=== PATIENT | male | born 1960 | race Caucasian/White ===

== ENCOUNTER 2016-10-26 12:38 | Inpatient (IN) | payer MEDICARE, OTHER ==
[~2016-10-26] VITALS: Ht 160 cm; Wt 61.0 kg
[~2016-10-26 12:38] MED LIST: ACYC400T PO; DARU75TA PO; LAMI1TAB PO; RALT400T PO; RITO100C2 PO
[2016-10-26 13:13] LABS: KETONES,URINE Trace (NEGATIVE); LEUKOCYTE ESTERASE ,URINE Negative (NEGATIVE); PH,URINE 5.5 (5.0-8.0)
[2016-10-26 13:14] LABS: CALCIUM, SERUM 7.7 mg/dL (8.5-10.1); POTASSIUM 3.3 mmol/L (3.5-5.1)
[2016-10-26 13:20] LABS: ADD UA MICROSCOPIC YES
[2016-10-26 13:21] LABS: ALBUMIN 2.3 g/dL (3.4-5.0); BILIRUBIN,TOTAL 6.2 mg/dL (0.2-1.0); TOTAL PROTEIN, SERUM 6.5 g/dL (6.4-8.2)
[2016-10-26 13:30] LABS: ADD URINE CULTURE NO; WBC,URINE 0-2 /HPF (0-3)
[2016-10-26 14:16] LABS: HEMATOCRIT 30 % (39-51); MEAN CORPUSCULAR HEMOGLOBIN 28 PG (26.0-33.0); MEAN CORPUSCULAR HGB CONC 34 g/dl (31.0-36.0); MEAN CORPUSCULAR VOLUME 83 fL (80-96); RED BLOOD CELL COUNT(AUTO) 3.58 MIL/uL (4.5-6.0)
[2016-10-26 14:18] LABS: PLATELET COUNT (AUTO) 20 /CMM (150-450)
[2016-10-26] MEDS ORDERED: ONDANSETRON HCL/PF 4 MG/2 ML VIAL IV ONE (14:30)
[2016-10-26] MEDS ORDERED: MORPHINE SULFATE INJ 2 MG/ML DISP.SYRIN IV ONE (14:30)
[2016-10-26] MEDS ORDERED: ONDANSETRON HCL/PF 4 MG/2 ML VIAL ONE (14:37)
[2016-10-26] MEDS ORDERED: MORPHINE SULFATE INJ 4 MG/ML DISP.SYRIN ONE (14:37)
[2016-10-26] MEDS ORDERED: OXYC15TA2 PO (15:23)
[2016-10-26] MEDS ORDERED: [UNRECOGNIZED DRUG - REMARK] (15:23)
[2016-10-26] MEDS ORDERED: FERR325T28 PO (15:52)
[2016-10-26] MEDS ORDERED: TENO300T2 PO (15:52)
[2016-10-26] MEDS ORDERED: PREG150C PO (15:52)
[2016-10-26] MEDS ORDERED: ETRA200T PO (15:52)
[2016-10-26] MEDS ORDERED: ACYC400T PO (15:52)
[2016-10-26] MEDS ORDERED: THIA100T74 PO (15:52)
[2016-10-26] MEDS ORDERED: ACET-868 PO (15:52)
[2016-10-26 16:03] LABS: BAND % (MANUAL) 28 % (0.0-5.0); LYMPHOCYTES % (MANUAL) 23 % (16-48); METAMYELOCYTES % 2 % (0-0)
[2016-10-26 16:04] LABS: ANISOCYTOSIS 1+; MICROCYTOSIS 1+; PLATELET ESTIMATE DECRE; ROULEAUX 1+
[2016-10-26] MEDS ORDERED: IV SET PRIMARY 1 EA INFUS.SET MC ONE (17:10)
[2016-10-26] MEDS ORDERED: IV NS 0.9% 1,000 ML ONE (17:10)
[2016-10-26] MEDS ORDERED: IV NS 0.9% 1,000 ML BAG IV ONE (17:30)
[2016-10-26] MEDS ORDERED: Z GUARD REMEDY 2 OZ OINT TP PRN (18:30)
[2016-10-26] MEDS ORDERED: HYDROCODONE/APAP 5/325MG 1 EACH TABLET PO PRN (18:30)
[2016-10-26] MEDS ORDERED: MAG HYDROX/AL HYDROX/SIMETH 30 ML UDC PO PRN (18:30)
[2016-10-26] MEDS ORDERED: ZOLPIDEM TARTRATE 5 MG TABLET PO PRN (18:30)
[2016-10-26] MEDS ORDERED: MAGNESIUM HYDROXIDE 30 ML UDC PO PRN (18:30)
[2016-10-26] MEDS ORDERED: ONDANSETRON HCL/PF 4 MG/2 ML VIAL IVP PRN (18:30)
[2016-10-26 19:30] VITALS: BP 101/61
[2016-10-26 20:00] VITALS: BP_SYST 101; BP_SYST 146; BP_DIAS 101; BP_DIAS 61
[2016-10-26] MEDS ORDERED: POTASSIUM CHLORIDE 20 MEQ TAB.PRT.SR PO ONE ×2 (21:00→21:14)
[2016-10-27] MEDS: ACYCLOVIR 800 MG TABLET PO SCH ×3 (09:00→17:59)
[2016-10-27] MEDS ORDERED: TENOFOVIR DISOPROXIL FUMARATE 300 MG TABLET PO SCH (09:00)
[2016-10-27] MEDS: PREGABALIN 25 MG CAPSULE PO SCH ×2 (09:22→17:59)
[2016-10-27] MEDS: PANTOPRAZOLE 40 MG TABLET.DR PO SCH (09:23)
[2016-10-27 09:30] LABS: HEMATOCRIT 28 % (39-51); HEMOGLOBIN 9.8 g/dL (13.5-17.5); MEAN CORPUSCULAR HEMOGLOBIN 28 PG (26.0-33.0); MEAN CORPUSCULAR HGB CONC 35 g/dl (31.0-36.0); MEAN CORPUSCULAR VOLUME 82 fL (80-96); RED BLOOD CELL COUNT(AUTO) 3.44 MIL/uL (4.5-6.0)
[2016-10-27 09:40] LABS: CALCIUM, SERUM 7.7 mg/dL (8.5-10.1); CREATININE 0.8 mg/dL (0.6-1.3); PHOSPHORUS 2.9 mg/dL (2.5-4.9); POTASSIUM 3.9 mmol/L (3.5-5.1)
[2016-10-27 09:42] LABS: PLATELET COUNT (AUTO) 25 /CMM (150-450)
[2016-10-27 09:44] LABS: ALBUMIN 1.9 g/dL (3.4-5.0); BILIRUBIN,DIRECT 4.6 mg/dL (0.0-0.2); BILIRUBIN,TOTAL 5.4 mg/dL (0.2-1.0); INDIRECT BILIRUBIN 0.8 mg/dL (0.0-1.1); TOTAL PROTEIN, SERUM 6.1 g/dL (6.4-8.2)
[2016-10-27 09:51] LABS: THYROID STIMULATING HORMONE 0.909 uIU/mL (0.358-3.74)
[2016-10-27 10:04] LABS: ANISOCYTOSIS 1+; BAND % (MANUAL) 9 % (0.0-5.0); BASOPHILS % (MANUAL) 1 % (0.0-2.0); EOSINOPHILS % (MANUAL) 2 % (0-4); HYPOCHROMASIA 1+; LYMPHOCYTES % (MANUAL) 29 % (16-48); METAMYELOCYTES % 1 % (0-0); PLATELET ESTIMATE DECREASED; POLYCHROMASIA 1+
[2016-10-27 13:08] LABS: C-REACTIVE PROTEIN 12.3 mg/dL (0.0-0.9)
[2016-10-27] MEDS: oxyCODONE IR immediate release 5 MG CAPSULE PO PRN (13:23)
[2016-10-27 20:00] VITALS: BP 108/73
[2016-10-27] MEDS: POLYETHYLENE GLYCOL 3350 17 GM POWD.PACK PO SCH (21:33)
[2016-10-27] MEDS: DOCUSATE SODIUM LIQ 100 MG/10 ML UDC PO SCH (21:33)
[2016-10-28] MEDS: oxyCODONE IR immediate release 5 MG CAPSULE PO PRN (06:10)
[2016-10-28 06:54] LABS: HEMATOCRIT 28 % (39-51); HEMOGLOBIN 9.8 g/dL (13.5-17.5); MEAN CORPUSCULAR HEMOGLOBIN 28 PG (26.0-33.0); MEAN CORPUSCULAR HGB CONC 34 g/dl (31.0-36.0); MEAN CORPUSCULAR VOLUME 82 fL (80-96); RED BLOOD CELL COUNT(AUTO) 3.44 MIL/uL (4.5-6.0); WHITE BLOOD COUNT (AUTO) 2.7 K/uL (4.3-11.0)
[2016-10-28 07:14] LABS: ALBUMIN 1.8 g/dL (3.4-5.0); BILIRUBIN,TOTAL 4.8 mg/dL (0.2-1.0); INDIRECT BILIRUBIN 0.8 mg/dL (0.0-1.1); TOTAL PROTEIN, SERUM 6.2 g/dL (6.4-8.2)
[2016-10-28 07:20] LABS: CALCIUM, SERUM 7.6 mg/dL (8.5-10.1); CREATININE 0.9 mg/dL (0.6-1.3); PHOSPHORUS 2.8 mg/dL (2.5-4.9); POTASSIUM 4.3 mmol/L (3.5-5.1)
[2016-10-28 07:48] LABS: PLATELET COUNT (AUTO) 37 /CMM (150-450)
[2016-10-28 08:00] VITALS: BP 95/52
[2016-10-28 08:01] LABS: BAND % (MANUAL) 13 % (0.0-5.0); LYMPHOCYTES % (MANUAL) 20 % (16-48); METAMYELOCYTES % 1 % (0-0); MYELOCYTES % 1 % (0-0); PLATELET ESTIMATE DECREASED
[2016-10-28 08:02] LABS: ANISOCYTOSIS 1+; HYPOCHROMASIA 1+
[2016-10-28] MEDS: PANTOPRAZOLE 40 MG TABLET.DR PO SCH (08:18)
[2016-10-28] MEDS: PREGABALIN 25 MG CAPSULE PO SCH ×2 (08:18→16:10)
[2016-10-28] MEDS: ACYCLOVIR 800 MG TABLET PO SCH ×2 (08:19→16:10)
[2016-10-28] MEDS: FOLIC ACID 1 MG TABLET PO SCH (09:25)
[2016-10-28 14:49] LABS: HIV-1 p24 ANTIGEN NON REACTIVE (NONREACTIVE); HIV-1/2 ANTIBODY REACTIVE (NONREACTIVE)
[2016-10-28 16:00] VITALS: BP 111/67
[2016-10-28] MEDS: FERROUS SULFATE (325 MG) 325 MG/TAB TABLET PO SCH (16:11)
[2016-10-28 18:07] LABS: *BANDS 19 % (Not Estab.); *NEUTROPHILS, ABSOLUTE 1.4 x10E3/uL (1.4-7.0)
[2016-10-28] MEDS: DOCUSATE SODIUM LIQ 100 MG/10 ML UDC PO SCH (22:00)
[2016-10-28] MEDS: POLYETHYLENE GLYCOL 3350 17 GM POWD.PACK PO SCH (22:00)
[2016-10-28 23:32] VITALS: BP 102/58
[2016-10-29] MEDS: PANTOPRAZOLE 40 MG TABLET.DR PO SCH (06:30)
[2016-10-29 07:09] LABS: *RAPID PLASMA REAGIN QUAL Non Reactive (Non Reactive)
[2016-10-29 08:00] VITALS: BP 106/65
[2016-10-29 08:24] LABS: *SPE ALBUMIN 2.1 g/dL (2.9-4.4)
[2016-10-29] MEDS: PREGABALIN 25 MG CAPSULE PO SCH ×2 (08:31→17:59)
[2016-10-29] MEDS: ACYCLOVIR 800 MG TABLET PO SCH ×2 (08:31→17:59)
[2016-10-29] MEDS: FERROUS SULFATE (325 MG) 325 MG/TAB TABLET PO SCH ×2 (08:31→17:59)
[2016-10-29] MEDS: FOLIC ACID 1 MG TABLET PO SCH (08:31)
[2016-10-29 12:11] LABS: *EBV AB VCA, IgG >600.0 U/mL (0.0-17.9); *EBV AB VCA, IgM <36.0 U/mL (0.0-35.9)
[2016-10-29] MEDS ORDERED: PIPERACILLIN /TAZOBACTAM 4.5 G in IV D5W 50 ML IV SCH (13:30)
[2016-10-29] MEDS: PIPERACILLIN /TAZOBACTAM 3.375 G in IV D5W 50 ML IV SCH ×2 (15:24→18:10)
[2016-10-29] MEDS ORDERED: IV SET PRIMARY PUMP SET 1 EA INFUS.SET MC ONE (15:24)
[2016-10-29 16:00] VITALS: BP 101/58
[2016-10-29] MEDS ORDERED: FEE PK DOSING 1 MIN EA MC ONE (19:22)
[2016-10-29] MEDS: SULFAMETH/TRIMETH 800/160 MG 1 UDTAB TABLET PO SCH (19:58)
[2016-10-29 20:00] VITALS: BP 109/72
[2016-10-29] MEDS ORDERED: SECONDARY IV SET 1 EA INFUS.SET MC ONE (21:03)
[2016-10-29] MEDS: VANCOMYCIN 0.75 GM in IV D5W 250 ML IV SCH (21:22)
[2016-10-29] MEDS: DOCUSATE SODIUM LIQ 100 MG/10 ML UDC PO SCH (22:00)
[2016-10-29] MEDS: POLYETHYLENE GLYCOL 3350 17 GM POWD.PACK PO SCH (22:00)
[2016-10-30] MEDS: VANCOMYCIN 0.75 GM in IV D5W 250 ML IV SCH ×2 (04:36→11:42)
[2016-10-30 06:04] LABS: CMV, IgM <30.0 AU/mL (0.0-29.9)
[2016-10-30 08:00] VITALS: BP 98/58
[2016-10-30] MEDS: ACYCLOVIR 800 MG TABLET PO SCH ×2 (08:17→17:41)
[2016-10-30] MEDS: FERROUS SULFATE (325 MG) 325 MG/TAB TABLET PO SCH ×2 (08:17→17:41)
[2016-10-30] MEDS: FOLIC ACID 1 MG TABLET PO SCH (08:17)
[2016-10-30] MEDS: PANTOPRAZOLE 40 MG TABLET.DR PO SCH (08:17)
[2016-10-30] MEDS: PREGABALIN 25 MG CAPSULE PO SCH ×2 (08:20→17:41)
[2016-10-30 11:11] LABS: HEMATOCRIT 28 % (39-51); HEMOGLOBIN 9.3 g/dL (13.5-17.5); MEAN CORPUSCULAR HEMOGLOBIN 27 PG (26.0-33.0); MEAN CORPUSCULAR HGB CONC 34 g/dl (31.0-36.0); MEAN CORPUSCULAR VOLUME 81 fL (80-96); RED BLOOD CELL COUNT(AUTO) 3.43 MIL/uL (4.5-6.0); WHITE BLOOD COUNT (AUTO) 2.4 K/uL (4.3-11.0)
[2016-10-30 11:23] LABS: CALCIUM, SERUM 7.4 mg/dL (8.5-10.1); POTASSIUM 4.1 mmol/L (3.5-5.1)
[2016-10-30 11:26] LABS: PLATELET COUNT (AUTO) 39 /CMM (150-450)
[2016-10-30 11:33] LABS: ALBUMIN 1.6 g/dL (3.4-5.0); BILIRUBIN,DIRECT 4.4 mg/dL (0.0-0.2); BILIRUBIN,TOTAL 5.1 mg/dL (0.2-1.0); INDIRECT BILIRUBIN 0.7 mg/dL (0.0-1.1)
[2016-10-30 12:00] LABS: INR 1.36 (0.87-1.13); PROTHROMBIN TIME 14.7 SECS (9.5-12.7)
[2016-10-30] MEDS: oxyCODONE IR immediate release 5 MG CAPSULE PO PRN (12:05)
[2016-10-30] MEDS ORDERED: LORAZEPAM 0.5 MG TABLET PO PRN (13:30)
[2016-10-30 14:46] LABS: BAND % (MANUAL) 4 % (0.0-5.0); LYMPHOCYTES % (MANUAL) 34 % (16-48); PLATELET ESTIMATE DECREASED
[2016-10-30 14:48] LABS: ANISOCYTOSIS 1+
[2016-10-30 16:00] VITALS: BP 106/56
[2016-10-30 18:00] VITALS: BP 106/56
[2016-10-30 20:00] VITALS: BP 101/61
[2016-10-30] MEDS: POLYETHYLENE GLYCOL 3350 17 GM POWD.PACK PO SCH (21:27)
[2016-10-30] MEDS: DOCUSATE SODIUM LIQ 100 MG/10 ML UDC PO SCH (21:27)
[2016-10-30 22:00] VITALS: BP 101/61
[2016-10-31 08:00] VITALS: BP 109/71
[2016-10-31] MEDS: ACYCLOVIR 800 MG TABLET PO SCH ×2 (08:49→16:17)
[2016-10-31] MEDS: FOLIC ACID 1 MG TABLET PO SCH (08:49)
[2016-10-31] MEDS: FERROUS SULFATE (325 MG) 325 MG/TAB TABLET PO SCH ×2 (08:49→16:17)
[2016-10-31] MEDS: PREGABALIN 25 MG CAPSULE PO SCH ×2 (08:49→16:17)
[2016-10-31] MEDS: PANTOPRAZOLE 40 MG TABLET.DR PO SCH (08:49)
[2016-10-31] MEDS: oxyCODONE IR immediate release 5 MG CAPSULE PO PRN (08:52)
[2016-10-31 12:10] LABS: HEMATOCRIT 29 % (39-51); HEMOGLOBIN 9.7 g/dL (13.5-17.5); MEAN CORPUSCULAR HEMOGLOBIN 28 PG (26.0-33.0); MEAN CORPUSCULAR HGB CONC 34 g/dl (31.0-36.0); MEAN CORPUSCULAR VOLUME 82 fL (80-96); RED BLOOD CELL COUNT(AUTO) 3.53 MIL/uL (4.5-6.0); WHITE BLOOD COUNT (AUTO) 2.9 K/uL (4.3-11.0)
[2016-10-31 12:13] LABS: CALCIUM, SERUM 7.3 mg/dL (8.5-10.1); CREATININE 0.9 mg/dL (0.6-1.3); PLATELET COUNT (AUTO) 50 /CMM (150-450); POTASSIUM 4.5 mmol/L (3.5-5.1)
[2016-10-31 13:27] LABS: ANISOCYTOSIS 1+; BAND % (MANUAL) 5 % (0.0-5.0); HYPOCHROMASIA 1+; LYMPHOCYTES % (MANUAL) 41 % (16-48); PLATELET ESTIMATE DECREASED
[2016-10-31 17:05] VITALS: BP 118/70
[2016-10-31 17:08] VITALS: BP 148/77
[2016-10-31] MEDS: SULFAMETH/TRIMETH 800/160 MG 1 UDTAB TABLET PO SCH (18:53)
[2016-10-31 20:00] VITALS: BP 117/71
[2016-10-31] MEDS: DOCUSATE SODIUM LIQ 100 MG/10 ML UDC PO SCH (21:42)
[2016-10-31] MEDS: POLYETHYLENE GLYCOL 3350 17 GM POWD.PACK PO SCH (21:42)
[2016-10-31 22:00] VITALS: BP 117/71
[2016-10-31 23:09] LABS: *HCV QUANT HCV Not Detected IU/mL (.)
[2016-11-01 08:00] VITALS: BP 113/71
[2016-11-01] MEDS: FERROUS SULFATE (325 MG) 325 MG/TAB TABLET PO SCH (08:32)
[2016-11-01] MEDS: FOLIC ACID 1 MG TABLET PO SCH (08:32)
[2016-11-01] MEDS: PANTOPRAZOLE 40 MG TABLET.DR PO SCH (08:32)
[2016-11-01] MEDS: ACYCLOVIR 800 MG TABLET PO SCH (08:32)
[2016-11-01] MEDS: PREGABALIN 25 MG CAPSULE PO SCH (08:32)
[2016-11-01 09:35] LABS: HEMATOCRIT 27 % (39-51); HEMOGLOBIN 9.1 g/dL (13.5-17.5); MEAN CORPUSCULAR HEMOGLOBIN 28 PG (26.0-33.0); MEAN CORPUSCULAR HGB CONC 34 g/dl (31.0-36.0); MEAN CORPUSCULAR VOLUME 82 fL (80-96); PLATELET COUNT (AUTO) 51 /CMM (150-450); RED BLOOD CELL COUNT(AUTO) 3.28 MIL/uL (4.5-6.0); WHITE BLOOD COUNT (AUTO) 3.1 K/uL (4.3-11.0)
[2016-11-01 10:05] LABS: CALCIUM, SERUM 7.3 mg/dL (8.5-10.1); CREATININE 1.1 mg/dL (0.6-1.3); POTASSIUM 4.1 mmol/L (3.5-5.1)
[2016-11-01 10:08] LABS: BAND % (MANUAL) 1 % (0.0-5.0); LYMPHOCYTES % (MANUAL) 39 % (16-48)
[2016-11-01 10:10] LABS: ANISOCYTOSIS 3+; HYPOCHROMASIA 2+
== END 2016-11-01 15:00 | disposition home or self-care (01) | DRG 808 ==
LOC: ER 12:40 → MED 14:35
PROVIDERS: ADMIT Internal Medicine; ATTEND Internal Medicine
DX: D61.811 Other drug-induced pancytopenia (principal); E43 Unspecified severe protein-calorie malnutrition; N17.0 Acute kidney failure with tubular necrosis; E87.1 Hypo-osmolality and hyponatremia; D68.9 Coagulation defect, unspecified; B19.20 Unspecified viral hepatitis C without hepatic coma; K59.00 Constipation, unspecified; R31.9 Hematuria, unspecified; Z91.14 Patient's other noncompliance with medication regimen; Z91.19 Patient's noncompliance with other medical treatment and regimen; D63.8 Anemia in other chronic diseases classified elsewhere; T40.2X5A Adverse effect of other opioids, initial encounter; Y92.009 Unspecified place in unspecified non-institutional (private) residence as the place of occurrence of the external cause; F31.9 Bipolar disorder, unspecified; G89.29 Other chronic pain; K62.89 Other specified diseases of anus and rectum; E87.6 Hypokalemia; E53.8 Deficiency of other specified B group vitamins; F15.90 Other stimulant use, unspecified, uncomplicated; F41.9 Anxiety disorder, unspecified; K80.20 Calculus of gallbladder without cholecystitis without obstruction
CPT/HCPCS: 36415; 76705-TC; 80048-TC; 80053-TC; 80074; 80076-TC; 81000-TC; 82105; 82728-TC; 82746; 83540-TC; 83615-TC; 83735-TC; 84100-TC; 84155; 84165; 84439-TC; 84443-TC; 85025-TC; 85045-TC; 85610-TC; 85730-TC; 86140-TC; 86360; 86431-TC; 86592; 86644; 86645; 86663; 86664; 86665; 86777; 86778; 87040-TC; 87081-TC; A4606; J2270; J2405; J2543; J3370; J7030; J7060; Z7610

== ENCOUNTER 2016-11-06 19:55 | Inpatient (IN) | payer MEDICARE, OTHER ==
[~2016-11-06] VITALS: Ht 160 cm; Wt 66.2 kg
[~2016-11-06 19:55] MED LIST changes: +ACET-868 PO; -DARU75TA PO; +ETRA200T PO; +FERR325T28 PO; -LAMI1TAB PO; +OXYC15TA2 PO; +PREG150C PO; -RALT400T PO; -RITO100C2 PO; +TENO300T2 PO; +THIA100T74 PO
[2016-11-06] MEDS ORDERED: IV NS 0.9% 1,000 ML BAG IV ONE (21:30)
[2016-11-06] MEDS ORDERED: ONDANSETRON HCL/PF 4 MG/2 ML VIAL IVP ONE (21:30)
[2016-11-06 21:34] LABS: KETONES,URINE Negative (NEGATIVE); LEUKOCYTE ESTERASE ,URINE Negative (NEGATIVE)
[2016-11-06] MEDS ORDERED: ONDANSETRON HCL/PF 4 MG/2 ML VIAL ONE (21:42)
[2016-11-06] MEDS ORDERED: IV SET PRIMARY 1 EA INFUS.SET MC ONE (21:42)
[2016-11-06] MEDS ORDERED: IV NS 0.9% 1,000 ML ONE (21:42)
[2016-11-06 21:47] LABS: ADD UA MICROSCOPIC YES
[2016-11-06 21:48] LABS: ADD URINE CULTURE NO; RBC,URINE 21-50 /HPF (0-2); WBC,URINE 0-2 /HPF (0-3)
[2016-11-06 21:50] LABS: CALCIUM, SERUM 7.5 mg/dL (8.5-10.1); POTASSIUM 3.6 mmol/L (3.5-5.1)
[2016-11-06 21:55] LABS: INR 1.25 (0.87-1.13); PROTHROMBIN TIME 13.1 SECS (9.5-12.7)
[2016-11-06 21:56] LABS: ALBUMIN 1.8 g/dL (3.4-5.0); BASOPHILS % (AUTO) 0.3 % (0.0-2.0); BILIRUBIN,DIRECT 3.3 mg/dL (0.0-0.2); BILIRUBIN,TOTAL 3.8 mg/dL (0.2-1.0); DIFF TOTAL % 100 %; EOSINOPHILS % (AUTO) 0.2 % (0.0-6.0); HEMATOCRIT 25 % (39-51); HEMOGLOBIN 8.4 g/dL (13.5-17.5); LYMPHOCYTES # (AUTO) 0.6 /CMM (0.8-4.8); LYMPHOCYTES % (AUTO) 20.3 % (20.0-44.0); MEAN CORPUSCULAR HEMOGLOBIN 28 PG (26.0-33.0); MEAN CORPUSCULAR HGB CONC 34 g/dl (31.0-36.0); MEAN CORPUSCULAR VOLUME 82 fL (80-96); MONOCYTES # (AUTO) 0.3 /CMM (0.1-1.30); MONOCYTES % (AUTO) 11.2 % (2.0-12.0); NEUTROPHILS # (AUTO) 2.1 /CMM (1.8-8.9); PLATELET COUNT (AUTO) 96 /CMM (150-450); RED BLOOD CELL COUNT(AUTO) 3.05 MIL/uL (4.5-6.0); WHITE BLOOD COUNT (AUTO) 3.1 K/uL (4.3-11.0)
[2016-11-06 21:59] LABS: INDIRECT BILIRUBIN 0.5 mg/dL (0.0-1.1)
[2016-11-06 22:18] LABS: BAND % (MANUAL) 7 % (0.0-5.0); LYMPHOCYTES % (MANUAL) 29 % (16-48)
[2016-11-06 22:19] LABS: ANISOCYTOSIS 1+; PLATELET ESTIMATE DECREASED
[2016-11-06 23:30] VITALS: BP 102/58
[2016-11-06] MEDS ORDERED: ACETAMINOPHEN 325 MG TABLET PO PRN ×2 (23:30→23:45)
[2016-11-06] MEDS ORDERED: ONDANSETRON HCL/PF 4 MG/2 ML VIAL IVP PRN ×2 (23:30→23:45)
[2016-11-06] MEDS ORDERED: VANCOMYCIN 1 GM in IV D5W 250 ML IV ONE (23:30)
[2016-11-06] MEDS ORDERED: ZOLPIDEM TARTRATE 5 MG TABLET PO PRN ×2 (23:30→23:45)
[2016-11-06] MEDS ORDERED: MAGNESIUM HYDROXIDE 30 ML UDC PO PRN ×2 (23:30→23:45)
[2016-11-06] MEDS ORDERED: PIPERACILLIN /TAZOBACTAM 3.375 G in IV D5W 50 ML IV ONE (23:30)
[2016-11-06] MEDS ORDERED: MAG HYDROX/AL HYDROX/SIMETH 30 ML UDC PO PRN ×2 (23:30→23:45)
[2016-11-07] VITALS: BP 102/58
[2016-11-07] MEDS ORDERED: VANCOMYCIN 1 GM in IV D5W 250 ML IV ONE ×2
[2016-11-07] MEDS ORDERED: VANCOMYCIN 1 GM VIAL ONE (00:06)
[2016-11-07] MEDS ORDERED: PIPERACILLIN /TAZOBACTAM 3.375 G VIAL IV ONE ×2 (00:07→04:51)
[2016-11-07] MEDS ORDERED: HYDROCODONE/APAP 5/325MG 1 EACH TABLET ONE (00:07)
[2016-11-07] MEDS ORDERED: IV SET PRIMARY PUMP SET 1 EA INFUS.SET MC ONE (00:09)
[2016-11-07] MEDS ORDERED: SECONDARY IV SET 1 EA INFUS.SET MC ONE (00:10)
[2016-11-07] MEDS ORDERED: IV D5W 250 ML IV ONE ×2 (00:10→00:11)
[2016-11-07] MEDS ORDERED: IV NS 0.9% 250 ML IV ONE (00:10)
[2016-11-07] MEDS ORDERED: IV D5W 50 ML IV ONE ×2 (00:10→04:52)
[2016-11-07] MEDS: PIPERACILLIN /TAZOBACTAM 3.375 G in IV D5W 50 ML IV SCH ×5 (00:25→23:36)
[2016-11-07] MEDS ORDERED: HYDROCODONE/APAP 5/325MG 1 EACH TABLET PO PRN (00:30)
[2016-11-07] MEDS ORDERED: MAG HYDROX/AL HYDROX/SIMETH 30 ML UDC ONE (05:48)
[2016-11-07] MEDS ORDERED: IV NS 0.9% 1,000 ML BAG IV SCH (06:30)
[2016-11-07] MEDS ORDERED: IV NS 0.9% 1,000 ML ONE (06:52)
[2016-11-07] MEDS: IV NS 0.9% 1,000 ML IV PRN (06:55)
[2016-11-07] MEDS ORDERED: PANTOPRAZOLE 40 MG TABLET.DR PO SCH (07:30)
[2016-11-07 08:00] VITALS: BP 103/61
[2016-11-07] MEDS ORDERED: FEE PK DOSING 1 MIN EA MC ONE (08:29)
[2016-11-07] MEDS: PANTOPRAZOLE 40 MG TABLET.DR PO SCH (08:57)
[2016-11-07] MEDS: FERROUS SULFATE (325 MG) 325 MG/TAB TABLET PO SCH ×3 (08:57→17:23)
[2016-11-07] MEDS: PREGABALIN 25 MG CAPSULE PO SCH ×2 (08:57→17:24)
[2016-11-07] MEDS: TENOFOVIR DISOPROXIL FUMARATE 300 MG TABLET PO SCH (08:58)
[2016-11-07] MEDS: THIAMINE HCL 100 MG TABLET PO SCH (08:58)
[2016-11-07] MEDS: VANCOMYCIN 1 GM in IV D5W 250 ML IV SCH ×2 (08:58→17:25)
[2016-11-07 11:28] LABS: CALCIUM, SERUM 7.1 mg/dL (8.5-10.1); POTASSIUM 3.6 mmol/L (3.5-5.1)
[2016-11-07 12:15] LABS: HEMATOCRIT 24 % (39-51); HEMOGLOBIN 7.8 g/dL (13.5-17.5); MEAN CORPUSCULAR HEMOGLOBIN 28 PG (26.0-33.0); MEAN CORPUSCULAR HGB CONC 33 g/dl (31.0-36.0); MEAN CORPUSCULAR VOLUME 83 fL (80-96); PLATELET COUNT (AUTO) 73 /CMM (150-450); RED BLOOD CELL COUNT(AUTO) 2.82 MIL/uL (4.5-6.0); WHITE BLOOD COUNT (AUTO) 2.5 K/uL (4.3-11.0)
[2016-11-07 12:57] LABS: ANISOCYTOSIS 1+; BAND % (MANUAL) 9 % (0.0-5.0); HYPOCHROMASIA 1+; LYMPHOCYTES % (MANUAL) 27 % (16-48); PLATELET ESTIMATE DECREASED
[2016-11-07] MEDS ORDERED: SULFAMETH/TRIMETH 800/160 MG 1 UDTAB TABLET PO SCH (13:30)
[2016-11-07] MEDS ORDERED: POTASSIUM CHLORIDE 20 MEQ POWDER PACKET PO ONE (14:30)
[2016-11-07] MEDS ORDERED: MAGNESIUM OXIDE 400 MG TABLET PO ONE (14:30)
[2016-11-07 16:00] VITALS: BP 99/63
[2016-11-07 20:00] VITALS: BP_SYST 110; BP_SYST 114; BP_DIAS 50; BP_DIAS 66
[2016-11-08] MEDS: VANCOMYCIN 1 GM in IV D5W 250 ML IV SCH ×2 (01:06→10:11)
[2016-11-08] MEDS: PIPERACILLIN /TAZOBACTAM 3.375 G in IV D5W 50 ML IV SCH (05:23)
[2016-11-08] MEDS: IV NS 0.9% 1,000 ML IV PRN (05:24)
[2016-11-08 08:00] VITALS: BP 100/55
[2016-11-08] MEDS ORDERED: FLUCONAZOLE (100 MG) 100 MG TABLET PO SCH (09:00)
[2016-11-08] MEDS: THIAMINE HCL 100 MG TABLET PO SCH (09:38)
[2016-11-08] MEDS: FERROUS SULFATE (325 MG) 325 MG/TAB TABLET PO SCH (09:38)
[2016-11-08] MEDS: PREGABALIN 25 MG CAPSULE PO SCH (09:38)
[2016-11-08] MEDS: PANTOPRAZOLE 40 MG TABLET.DR PO SCH (09:38)
[2016-11-08] MEDS: TENOFOVIR DISOPROXIL FUMARATE 300 MG TABLET PO SCH (09:41)
[2016-11-08] MEDS ORDERED: SULF1TAB48 PO (10:23)
[2016-11-08 11:14] LABS: HEMATOCRIT 24 % (39-51); HEMOGLOBIN 8.1 g/dL (13.5-17.5); MEAN CORPUSCULAR HEMOGLOBIN 29 PG (26.0-33.0); MEAN CORPUSCULAR HGB CONC 34 g/dl (31.0-36.0); MEAN CORPUSCULAR VOLUME 86 fL (80-96); PLATELET COUNT (AUTO) 75 /CMM (150-450); RED BLOOD CELL COUNT(AUTO) 2.76 MIL/uL (4.5-6.0); WHITE BLOOD COUNT (AUTO) 2.1 K/uL (4.3-11.0)
[2016-11-08 11:58] LABS: CALCIUM, SERUM 7.4 mg/dL (8.5-10.1); CREATININE 1.1 mg/dL (0.6-1.3); POTASSIUM 3.7 mmol/L (3.5-5.1)
[2016-11-08 12:28] LABS: ANISOCYTOSIS 1+; HYPOCHROMASIA 1+; LYMPHOCYTES % (MANUAL) 32 % (16-48); PLATELET ESTIMATE DECREASED
[2016-11-09] MEDS ORDERED: SULFAMETH/TRIMETH 800/160 MG 1 UDTAB TABLET PO SCH (09:00)
[2016-11-11] MEDS ORDERED: SULFAMETH/TRIMETH 800/160 MG 1 UDTAB TABLET PO SCH (09:00)
== END 2016-11-08 13:15 | disposition home or self-care (01) | DRG 641 ==
LOC: ER 19:58 → MED 23:47
PROVIDERS: ADMIT Nurse Practitioner Acute Care; ATTEND Nurse Practitioner Acute Care
DX: R62.7 Adult failure to thrive (principal); D68.59 Other primary thrombophilia; D61.818 Other pancytopenia; J98.11 Atelectasis; E44.0 Moderate protein-calorie malnutrition; K80.20 Calculus of gallbladder without cholecystitis without obstruction; R31.9 Hematuria, unspecified; Z59.0 Homelessness; G89.29 Other chronic pain; D72.825 Bandemia; Z91.14 Patient's other noncompliance with medication regimen; M19.90 Unspecified osteoarthritis, unspecified site; E83.42 Hypomagnesemia; E87.6 Hypokalemia; F15.10 Other stimulant abuse, uncomplicated; Z91.19 Patient's noncompliance with other medical treatment and regimen; F17.210 Nicotine dependence, cigarettes, uncomplicated; K64.9 Unspecified hemorrhoids; Z68.25 Body mass index [BMI] 25.0-25.9, adult
CPT/HCPCS: 36415; 71010-TC; 80048-TC; 80076-TC; 81000-TC; 83735-TC; 85025-TC; 85730-TC; 87040-TC; 87081-TC; A4606; J2405; J2543; J3370; J7030; J7050; J7060; Z7610

== ENCOUNTER 2016-11-21 15:40 | Emergency (ER) | payer MEDICARE, OTHER ==
[~2016-11-21] VITALS: Ht 160 cm; Wt 61.2 kg
[2016-11-21 15:40] VITALS: BP 117/61
[~2016-11-21 15:40] MED LIST changes: +SULF1TAB48 PO
[2016-11-21] MEDS ORDERED: DOCUSATE SODIUM LIQ 100 MG/10 ML UDC ONE (16:20)
[2016-11-21] MEDS ORDERED: DOCUSATE SODIUM LIQ 100 MG/10 ML UDC PO ONE (16:30)
== END 2016-11-21 16:27 | disposition home or self-care (01) ==
LOC: ER 15:45
DX: K64.9 Unspecified hemorrhoids (principal)
CPT/HCPCS: 99282; A4606; Z7610